=== PATIENT | female | born 1970 | race Caucasian/White ===

== ENCOUNTER 2016-10-09 17:39 | Emergency (ER) | payer BC, OTHER ==
[~2016-10-09] VITALS: Ht 165.1 cm; Wt 102.1 kg
[~2016-10-09 17:39] MED LIST: ASPI-515 PO; DIAZ2TAB3; DILT30TA33 PO; IBUP200C PO; INSU100V13 SQ-INSULIN; LOSA50TA6 PO; LOVA10TA PO; MEDR10TA PO; METO25TA35 PO; PARO40TA45 PO; SITA50TA PO; [UNRECOGNIZED DRUG - CODE] PO; [UNRECOGNIZED DRUG - REMARK]
[2016-10-09 17:43] VITALS: BP 164/99
[2016-10-09 18:31] LABS: HEMOGLOBIN 13.9 g/dL (11.7-16.4)
[2016-10-09 18:43] LABS: BLOOD UREA NITROGEN 14 mg/dL (7-18)
== END 2016-10-09 20:09 | disposition home or self-care (01) ==
LOC: ED 20:03
DX: L03.116 Cellulitis of left lower limb (principal)
CPT/HCPCS: 36415; 80048; 82040; 85025

== ENCOUNTER → 2017-01-01 | Outpatient (CLI) | payer BC, OTHER | END | disposition home or self-care (01) | LOC: PETCFH 10:06 | PROVIDERS: ATTEND Internal Medicine Gastroenterology | DX: D12.5 Benign neoplasm of sigmoid colon (principal); K31.89 Other diseases of stomach and duodenum; K92.1 Melena; K64.8 Other hemorrhoids | CPT/HCPCS: 78227; A9537 ==

== ENCOUNTER 2017-01-08 10:44 | Emergency (ER) | payer BC, OTHER ==
[~2017-01-08] VITALS: Ht 165.1 cm; Wt 99.0 kg
[2017-01-08] MEDS ORDERED: SODIUM CHLORIDE FLUSH 10ML SYR IVF ONE (13:00)
[2017-01-08] MEDS ORDERED: SODIUM CHLORIDE 0.9% 1,000ML IVBOLUS ONE (13:00)
[2017-01-08] MEDS ORDERED: ONDANSETRON 2MG/ML, 2ML IVPush ONE (13:00)
[2017-01-08] MEDS ORDERED: MORPHINE SULFATE 4 MG/ML, 1ML ONE ×2 (13:21→14:47)
[2017-01-08] MEDS ORDERED: ONDANSETRON 2MG/ML, 2ML ONE (13:21)
[2017-01-08 13:28] LABS: ASPARTATE AMINO TRANSFERASE 21 U/L (15-37); BLOOD UREA NITROGEN 8 mg/dL (7-18)
[2017-01-08] MEDS: MORPHINE SULFATE 4 MG/ML, 1ML IVPush PRN ×2 (13:28→14:50)
[2017-01-08] MEDS ORDERED: ONDA4TAB7 PO (13:45)
[2017-01-08 16:12] VITALS: BP 129/76
== END 2017-01-08 16:19 | disposition home or self-care (01) ==
LOC: ED 14:42
DX: K80.50 Calculus of bile duct without cholangitis or cholecystitis without obstruction (principal); R10.11 Right upper quadrant pain; E11.9 Type 2 diabetes mellitus without complications; I10 Essential (primary) hypertension; E78.5 Hyperlipidemia, unspecified; E66.9 Obesity, unspecified; Z88.2 Allergy status to sulfonamides
CPT/HCPCS: 36415; 76700; 80053; 83690; 85025; 96361; 96374; 96375; 96376; 99285; J2405; J7030

== ENCOUNTER 2017-04-17 08:14 | Emergency (ER) | payer BC, OTHER ==
[~2017-04-17] VITALS: Ht 165.1 cm; Wt 101.0 kg
[~2017-04-17 08:14] MED LIST changes: -IBUP200C PO; +IBUP200C5 PO; +METF-163 PO; +ONDA4TAB7 PO; -PARO40TA45 PO; +PARO40TA61 PO; -[UNRECOGNIZED DRUG - CODE] PO
[2017-04-17 08:16] VITALS: BP 152/92
[2017-04-17] MEDS ORDERED: SODIUM CHLORIDE 0.9% 1,000ML IVBOLUS ONE (09:00)
[2017-04-17] MEDS ORDERED: ONDANSETRON 2MG/ML, 2ML ONE (09:09)
[2017-04-17] MEDS ORDERED: ONDANSETRON 2MG/ML, 2ML IVPush ONE (10:00)
[2017-04-17 11:38] LABS: HEMATOCRIT 46.4 % (34.6-47.8); HEMOGLOBIN 15.7 g/dL (11.7-16.4); WHITE BLOOD COUNT 5.6 x10^3/uL (3.4-10)
[2017-04-17 11:51] LABS: ASPARTATE AMINO TRANSFERASE 22 U/L (15-37); BLOOD UREA NITROGEN 9 mg/dL (7-18)
[2017-04-17] MEDS ORDERED: OMNIPAQUE 350 MG/ML, 100ML BOTTLE ONE (13:10)
== END 2017-04-17 14:46 | disposition home or self-care (01) ==
LOC: ED 11:54
DX: R10.31 Right lower quadrant pain (principal); E11.65 Type 2 diabetes mellitus with hyperglycemia; E78.5 Hyperlipidemia, unspecified; F17.210 Nicotine dependence, cigarettes, uncomplicated; I10 Essential (primary) hypertension; Z90.49 Acquired absence of other specified parts of digestive tract; Z90.710 Acquired absence of both cervix and uterus
CPT/HCPCS: 36415; 74177; 76857; 80053; 81003; 85025; 96360; 96361; 99285; J7030; Q9967

== ENCOUNTER 2017-06-13 15:56 | Emergency (ER) | payer BC, OTHER ==
[~2017-06-13] VITALS: Ht 165.1 cm; Wt 100.0 kg
[2017-06-13 15:59] VITALS: BP 136/87
[2017-06-13] MEDS ORDERED: LIDOCAINE 1%, 20ML ONE (16:35)
[2017-06-13] MEDS ORDERED: DIPH,PERTUSS(ACELL),TET VAC/PF 0.5 ML IM-VACC ONE ×2 (16:49→17:00)
[2017-06-13] MEDS ORDERED: LIDOCAINE 1%, 20ML SQ ONE (17:00)
== END 2017-06-13 17:36 | disposition home or self-care (01) ==
LOC: ED 17:00
DX: S61.012A Laceration without foreign body of left thumb without damage to nail, initial encounter (principal); E11.65 Type 2 diabetes mellitus with hyperglycemia; E78.5 Hyperlipidemia, unspecified; I10 Essential (primary) hypertension; F17.200 Nicotine dependence, unspecified, uncomplicated; Z90.710 Acquired absence of both cervix and uterus; W26.8XXA Contact with other sharp object(s), not elsewhere classified, initial encounter; Y93.89 Activity, other specified; Y92.89 Other specified places as the place of occurrence of the external cause; Y99.8 Other external cause status
CPT/HCPCS: 12001; 90471; 90715

== ENCOUNTER 2017-07-29 09:18 | Emergency (ER) | payer BC, OTHER ==
[~2017-07-29] VITALS: Ht 165.1 cm; Wt 100.3 kg
[2017-07-29 09:20] VITALS: BP 170/95
[2017-07-29] MEDS ORDERED: SODIUM CHLORIDE 0.9% 1,000ML IVBOLUS ONE (10:00)
[2017-07-29 10:12] LABS: BASOPHILS # (AUTO) 0.01 x10^3/uL (0-0.1); BASOPHILS % (AUTO) 0 % (0-1); EOSINOPHILS % (AUTO) 0 % (1-7); LYMPHOCYTES # (AUTO) 1.37 x10^3/uL (1-3.4); LYMPHOCYTES % (AUTO) 9 % (22-44); MD NO; MEAN CORPUSCULAR HEMOGLOBIN 31.3 pg (27.0-34.8); MEAN CORPUSCULAR HGB CONC 33.8 g/dL (32.4-35.8); MEAN CORPUSCULAR VOLUME 92.7 fL (80-100); MEAN PLATELET VOLUME 8.8 fL (7.4-10.4); MONOCYTES # (AUTO) 0.47 x10^3/uL (0.2-0.8); MONOCYTES % (AUTO) 3 % (2-9); NEUTROPHILS # (AUTO) 13.07 x10^3/uL (1.8-6.8); NEUTROPHILS % (AUTO) 88 % (42-75); PLATELET COUNT 247 x10^3/uL (130-400); RED BLOOD COUNT 5.53 x10^6/uL (3.82-5.3); RED CELL DISTRIBUTION WIDTH 13.6 % (9.6-15.2)
[2017-07-29 10:14] LABS: PH, VENOUS 7.366 pH (7.320-7.420)
[2017-07-29] MEDS ORDERED: ONDANSETRON 2MG/ML, 2ML ONE (10:14)
[2017-07-29] MEDS ORDERED: GABA300C10 PO (10:19)
[2017-07-29] MEDS ORDERED: LIRA0.6P2 SQ (10:19)
[2017-07-29 10:23] LABS: ALBUMIN 4.6 g/dL (3.4-5.0); ANION GAP 10 mmol/L (5-15); CALCIUM 9.9 mg/dL (8.5-10.1); CHLORIDE 100 mmol/L (98-107)
[2017-07-29 10:25] LABS: ALANINE AMINOTRANSFERASE 43 U/L (12-78); ALKALINE PHOSPHATASE 96 U/L (45-117); BILIRUBIN,TOTAL 0.4 mg/dL (0.2-1.0); CREATININE 1.23 mg/dL (0.55-1.02); TOTAL PROTEIN 8.8 g/dL (6.4-8.2)
[2017-07-29] MEDS ORDERED: ONDANSETRON 2MG/ML, 2ML IVPush ONE (10:30)
[2017-07-29 10:31] LABS: CULTURE INDICATED? NO; MICROSCOPIC NOT IND
[2017-07-29 10:42] LABS: ACETONE, SERUM Negative (Negative)
[2017-07-29] MEDS ORDERED: INSULIN REGULAR 100 UNITS/ML, 3ML VIAL SQ-INSULIN ONE (11:00)
[2017-07-29] MEDS ORDERED: INSULIN REGULAR 100 UNITS/ML, 3ML VIAL ONE (11:22)
== END 2017-07-29 12:56 | disposition home or self-care (01) ==
LOC: ED 10:35
DX: E11.65 Type 2 diabetes mellitus with hyperglycemia (principal); E66.9 Obesity, unspecified; I10 Essential (primary) hypertension; Z79.4 Long term (current) use of insulin; Z90.49 Acquired absence of other specified parts of digestive tract; Z90.710 Acquired absence of both cervix and uterus
CPT/HCPCS: 36415; 80053; 81003; 82010; 82803; 82962; 85025; 96361; 96372; 96374; 99285; J2405; J7030

== ENCOUNTER → 2017-08-27 | Outpatient (CLI) | payer BC, OTHER ==
[~2017-08-27] MED LIST changes: +GABA300C10 PO; +LIRA0.6P2 SQ
== END | disposition home or self-care (01) ==
LOC: RAD 13:30
PROVIDERS: ATTEND Physician Assistant
DX: R60.0 Localized edema (principal); M79.605 Pain in left leg

== ENCOUNTER 2017-10-06 12:41 | Emergency (ER) | payer BC, OTHER ==
[~2017-10-06] VITALS: Ht 165.1 cm; Wt 101.7 kg
[2017-10-06 12:46] VITALS: BP 156/99
[2017-10-06] MEDS ORDERED: FAMOTIDINE 20 MG TABLET ONE (13:13)
[2017-10-06] MEDS ORDERED: FAMOTIDINE 20 MG TABLET PO ONE (13:30)
== END 2017-10-06 13:49 | disposition home or self-care (01) ==
LOC: ED 13:40
DX: L50.9 Urticaria, unspecified (principal); E11.65 Type 2 diabetes mellitus with hyperglycemia; E78.5 Hyperlipidemia, unspecified; I10 Essential (primary) hypertension; E66.9 Obesity, unspecified
CPT/HCPCS: 99283; Q0177

== ENCOUNTER 2017-10-26 11:24 | Emergency (ER) | payer BC, OTHER ==
[~2017-10-26] VITALS: Ht 165.1 cm; Wt 98.6 kg
[2017-10-26] MEDS ORDERED: ASPIRIN 81 MG TABLET CHEW PO ONE (12:00)
[2017-10-26 12:18] LABS: BASOPHILS # (AUTO) 0.06 x10^3/uL (0-0.1); BASOPHILS % (AUTO) 1 % (0-1); EOSINOPHILS # (AUTO) 0.02 x10^3/uL (0-0.4); EOSINOPHILS % (AUTO) 0 % (1-7); LYMPHOCYTES # (AUTO) 2.41 x10^3/uL (1-3.4); LYMPHOCYTES % (AUTO) 29 % (22-44); MD NO; MEAN CORPUSCULAR HEMOGLOBIN 31.2 pg (27.0-34.8); MEAN CORPUSCULAR HGB CONC 33.7 g/dL (32.4-35.8); MEAN CORPUSCULAR VOLUME 92.7 fL (80-100); MEAN PLATELET VOLUME 8.4 fL (7.4-10.4); MONOCYTES # (AUTO) 0.46 x10^3/uL (0.2-0.8); MONOCYTES % (AUTO) 5 % (2-9); NEUTROPHILS # (AUTO) 5.47 x10^3/uL (1.8-6.8); NEUTROPHILS % (AUTO) 65 % (42-75); PLATELET COUNT 262 x10^3/uL (130-400); RED BLOOD COUNT 5.19 x10^6/uL (3.82-5.3); RED CELL DISTRIBUTION WIDTH 13.2 % (9.6-15.2)
[2017-10-26 12:28] LABS: ANION GAP 9 mmol/L (5-15); CALCIUM 9.3 mg/dL (8.5-10.1); CHLORIDE 106 mmol/L (98-107)
[2017-10-26 12:34] LABS: ALANINE AMINOTRANSFERASE 57 U/L (12-78); ALKALINE PHOSPHATASE 78 U/L (45-117); BILIRUBIN,TOTAL 0.5 mg/dL (0.2-1.0); CREATININE 1.03 mg/dL (0.55-1.02)
[2017-10-26 12:35] LABS: TOTAL PROTEIN 7.6 g/dL (6.4-8.2); TROPONIN I < 0.015 ng/mL (0.000-0.045)
[2017-10-26] MEDS ORDERED: ASPIRIN 81 MG TABLET CHEW ONE (12:54)
[2017-10-26] MEDS ORDERED: ATOR20TA PO (13:01)
[2017-10-26] MEDS ORDERED: MAALOX/HYOSCYAMINE/LIDOCAINE 45 ML BTL ONE (13:57)
[2017-10-26 13:58] VITALS: BP 138/78
[2017-10-26] MEDS ORDERED: MAALOX/HYOSCYAMINE/LIDOCAINE 45 ML BTL PO ONE (14:00)
== END 2017-10-26 14:35 | disposition home or self-care (01) ==
LOC: ED 14:29
DX: R07.89 Other chest pain (principal); I10 Essential (primary) hypertension; E11.9 Type 2 diabetes mellitus without complications; E78.5 Hyperlipidemia, unspecified; Z90.49 Acquired absence of other specified parts of digestive tract; F17.200 Nicotine dependence, unspecified, uncomplicated
CPT/HCPCS: 36415; 71046; 80053; 84484; 85025; 93005; 99285

== ENCOUNTER → 2017-11-25 | Outpatient (CLI) | payer OTHER ==
[~2017-11-25] MED LIST changes: +ATOR20TA PO
== END | disposition home or self-care (01) ==
LOC: CFH 12:51
PROVIDERS: ATTEND Family Medicine
DX: R13.10 Dysphagia, unspecified (principal)
CPT/HCPCS: 74220

== ENCOUNTER 2018-05-14 12:09 | Emergency (ER) | payer OTHER ==
[~2018-05-14] VITALS: Ht 165.1 cm; Wt 100.7 kg
[~2018-05-14 12:09] MED LIST changes: +IBUP-1623 PO; -IBUP200C5 PO; -LOSA50TA6 PO; +LOSA50TA7 PO
[2018-05-14 12:14] VITALS: BP 161/93
[2018-05-14] MEDS ORDERED: BACITRACIN ZINC OINT 500U/GM, 0.9 GM ONE (13:05)
[2018-05-14] MEDS ORDERED: KETOROLAC 30 MG/1 ML ONE (13:24)
[2018-05-14] MEDS ORDERED: KETOROLAC 30 MG/1 ML IM ONE (13:30)
== END 2018-05-14 13:50 | disposition home or self-care (01) ==
LOC: ED 13:44
DX: M75.32 Calcific tendinitis of left shoulder (principal); G89.29 Other chronic pain; E11.65 Type 2 diabetes mellitus with hyperglycemia; I10 Essential (primary) hypertension; E78.5 Hyperlipidemia, unspecified
CPT/HCPCS: 73030; 93005; 96372; 99284; J1885

== ENCOUNTER 2018-07-08 08:17 | Emergency (ER) | payer OTHER ==
[~2018-07-08] VITALS: Ht 165.1 cm; Wt 103.6 kg
[2018-07-08 11:01] VITALS: BP 175/108
== END 2018-07-08 11:05 | disposition home or self-care (01) ==
LOC: ED 09:21
DX: G89.29 Other chronic pain (principal); M25.512 Pain in left shoulder; M75.32 Calcific tendinitis of left shoulder; R94.6 Abnormal results of thyroid function studies; F17.200 Nicotine dependence, unspecified, uncomplicated; I10 Essential (primary) hypertension; E11.65 Type 2 diabetes mellitus with hyperglycemia; E78.5 Hyperlipidemia, unspecified; E66.9 Obesity, unspecified
CPT/HCPCS: 72125; 99284